=== PATIENT | female | born 1965 | race African-American/Black ===

== ENCOUNTER 2017-08-03 17:39 | Emergency (ER) | payer OTHER ==
[~2017-08-03] VITALS: Ht 160 cm; Wt 47.6 kg
[~2017-08-03 17:39] MED LIST: ACID REDUCER PO; AMITRIPTYLIN50 MG PO; CLON0.5T36 PO; GLUCOPHAGE1000 MG PO; HYDR25TA60 PO; LOSA50TA8 PO; LOVA20TA PO; PROPRANOLOL40 MG PO
[2017-08-03] MEDS ORDERED: PROLENSA0.07 % OP (18:01)
[2017-08-03] MEDS ORDERED: BESIVANCE0.6 % OP (18:01)
[2017-08-03] MEDS ORDERED: AMLO2.5T PO (18:04)
[2017-08-03] MEDS ORDERED: FERROUS SULF325 M1 OR (18:04)
[2017-08-03] MEDS ORDERED: TOUJEO SOL300 UNIT/M SC (18:10)
[2017-08-03 20:30] VITALS: BP 148/76; TEMP 98.9
== END 2017-08-03 20:33 | disposition home or self-care (01) ==
LOC: ED 17:39
DX: H57.11 Ocular pain, right eye (principal); H53.9 Unspecified visual disturbance; S05.01XA Injury of conjunctiva and corneal abrasion without foreign body, right eye, initial encounter; Z98.890 Other specified postprocedural states
CPT/HCPCS: 99283

== ENCOUNTER 2017-08-04 14:02 | Emergency (ER) | payer OTHER ==
[~2017-08-04] VITALS: Ht 165.1 cm; Wt 49.0 kg
[~2017-08-04 14:02] MED LIST changes: +AMLO2.5T PO; +BESIVANCE0.6 % OP; +FERROUS SULF325 M1 OR; +PROLENSA0.07 % OP; +TOUJEO SOL300 UNIT/M SC
[2017-08-04 14:25] VITALS: BP 170/90; TEMP 98.6
== END 2017-08-04 15:48 | disposition short-term general hospital (02) ==
LOC: ED 14:02
DX: H20.00 Unspecified acute and subacute iridocyclitis (principal); H57.11 Ocular pain, right eye; H53.9 Unspecified visual disturbance; H44.001 Unspecified purulent endophthalmitis, right eye
CPT/HCPCS: 96372; 99283; J1885

== ENCOUNTER 2019-11-21 21:28 | Emergency (ER) | payer OTHER ==
[~2019-11-21] VITALS: Ht 157.5 cm; Wt 48.1 kg
[2019-11-21 21:38] VITALS: BP 139/61
[2019-11-22 00:17] VITALS: TEMP 98.6
== END 2019-11-22 00:41 | disposition home or self-care (01) ==
LOC: ED 21:28
DX: J06.9 Acute upper respiratory infection, unspecified (principal)
CPT/HCPCS: 87502; 99282; 99283

== ENCOUNTER 2020-01-11 11:24 | Emergency (ER) | payer OTHER ==
[~2020-01-11] VITALS: Ht 157.5 cm; Wt 48.1 kg
[2020-01-11 11:34] VITALS: TEMP 98.1
[2020-01-11 12:24] LABS: PLATELET COUNT 284 K/uL (152-353)
[2020-01-11 12:33] LABS: POTASSIUM 4.9 mmol/L (3.6-5.2)
[2020-01-11 14:59] VITALS: BP 169/84
== END 2020-01-11 15:00 | disposition home or self-care (01) ==
LOC: ED 11:24
PROVIDERS: Family Medicine
DX: J06.9 Acute upper respiratory infection, unspecified (principal); R05 Cough; I10 Essential (primary) hypertension; N18.6 End stage renal disease; Z99.2 Dependence on renal dialysis
CPT/HCPCS: 80053; 85027; 87502; 96372; 99283; J0696

== ENCOUNTER 2020-01-12 17:57 | Emergency (ER) | payer OTHER ==
[~2020-01-12] VITALS: Ht 157.5 cm; Wt 48.1 kg
[2020-01-12 18:26] LABS: PLATELET COUNT 292 K/uL (152-353)
[2020-01-12 18:56] LABS: SODIUM 125 mmol/L (136-145)
[2020-01-12 19:07] LABS: PARTIAL THROMBOPLASTIN TIME 25.9 SECONDS (24.5-33.6)
[2020-01-12 21:50] VITALS: BP 187/93; TEMP 99
== END 2020-01-12 21:50 | disposition short-term general hospital (02) ==
LOC: ED 17:57
PROVIDERS: Student in an Organized Health Care Education/Training Program
DX: N18.6 End stage renal disease (principal); Z99.2 Dependence on renal dialysis; E87.5 Hyperkalemia; J81.1 Chronic pulmonary edema; R09.02 Hypoxemia; R00.0 Tachycardia, unspecified
CPT/HCPCS: 36415; 80048; 81000; 82962; 83735; 83880; 84484; 85027; 85610; 85730; 93005; 96360; 96365; 96375; 96376; 99285; J0610; J1815; J1940; J2270; J2405; J7060

== ENCOUNTER 2020-01-12 22:02 | Outpatient (CLI) | payer OTHER | END 2020-01-12 23:20 | disposition short-term general hospital (02) | LOC: AMB 22:02 | DX: J81.1 Chronic pulmonary edema (principal); R07.89 Other chest pain; N18.6 End stage renal disease; Z99.2 Dependence on renal dialysis | CPT/HCPCS: A0425; A0427 ==

== ENCOUNTER 2020-06-01 16:54 | Emergency (ER) | payer OTHER ==
[~2020-06-01] VITALS: Ht 147.3 cm; Wt 42.6 kg
[2020-06-01 16:59] VITALS: BP 192/83; TEMP 97.6
[2020-06-01 17:56] LABS: PLATELET COUNT 406 K/uL (152-353)
[2020-06-01 18:05] LABS: PARTIAL THROMBOPLASTIN TIME 24.1 SECONDS (24.5-33.6)
== END 2020-06-01 19:30 | disposition short-term general hospital (02) ==
LOC: ED 17:04
PROVIDERS: Family Medicine
DX: N19 Unspecified kidney failure (principal); N18.6 End stage renal disease; Z99.2 Dependence on renal dialysis
CPT/HCPCS: 80053; 84484; 85027; 85379; 85610; 85730; 93005; 99283

== ENCOUNTER 2020-06-30 00:13 | Emergency (ER) | payer OTHER ==
[~2020-06-30] VITALS: Ht 147.3 cm; Wt 43.1 kg
[2020-06-30 01:29] LABS: PLATELET COUNT 544 K/uL (152-353)
[2020-06-30 01:34] LABS: POTASSIUM 4.4 mmol/L (3.6-5.2); SODIUM 127 mmol/L (136-145)
[2020-06-30 02:37] VITALS: BP 168/74; TEMP 97.7
== END 2020-06-30 02:37 | disposition home or self-care (01) ==
LOC: ED 00:13
PROVIDERS: Emergency Medicine Emergency Medical Services
DX: T50.995A Adverse effect of other drugs, medicaments and biological substances, initial encounter (principal); I12.0 Hypertensive chronic kidney disease with stage 5 chronic kidney disease or end stage renal disease; N18.6 End stage renal disease; Z99.2 Dependence on renal dialysis; Y92.89 Other specified places as the place of occurrence of the external cause
CPT/HCPCS: 36415; 80053; 80329; 85027; 96360; 96372; 99284; J1815

== ENCOUNTER 2021-07-22 14:31 | Inpatient (IN) | payer OTHER ==
[~2021-07-22] VITALS: Ht 147.3 cm; Wt 43.1 kg
[2021-07-22 15:27] VITALS: BP 161/87; TEMP 98.1
[2021-07-22 16:03] LABS: PLATELET COUNT 408 K/uL (152-353)
[2021-07-22 16:14] LABS: POTASSIUM 3.3 mmol/L (3.6-5.2)
[2021-07-22 21:00] VITALS: BP 150/75
[2021-07-22 22:00] VITALS: BP 135/66
[2021-07-22 23:00] VITALS: BP 140/70
[2021-07-23] VITALS: BP 153/71
[2021-07-23 01:00] VITALS: BP 137/65
[2021-07-23 02:00] VITALS: BP 143/66
[2021-07-23 03:16] VITALS: BP 143/59; TEMP 97; Ht 147.3 cm; Wt 43.1 kg
[2021-07-23 03:23] LABS: PLATELET COUNT 414 K/uL (152-353)
[2021-07-23 03:58] LABS: POTASSIUM 4.2 mmol/L (3.6-5.2)
== END 2021-07-23 07:45 | disposition expired | DRG 177 ==
LOC: ED 14:31 → MED/SURG 20:25
PROVIDERS: ADMIT Hospitalist; ATTEND Family Medicine
DX: U07.1 COVID-19 (principal); J12.82 Pneumonia due to coronavirus disease 2019; N18.6 End stage renal disease; I12.0 Hypertensive chronic kidney disease with stage 5 chronic kidney disease or end stage renal disease; E11.22 Type 2 diabetes mellitus with diabetic chronic kidney disease; Z99.2 Dependence on renal dialysis; R06.00 Dyspnea, unspecified; C50.919 Malignant neoplasm of unspecified site of unspecified female breast
CPT/HCPCS: 31500; 36415; 80053; 82728; 83605; 83690; 83735; 84100; 85027; 85379; 86140; 87040; 87635; 92950; 93005; 96365; 96368; 99284; J0171; J0282; J0456; J0696; J0697; J2405; J2543; J3370; J3490; J7060; U0003